=== PATIENT | male | born 2000 | race Two or more races ===

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

== ENCOUNTER 2022-04-27 15:40 | Emergency (ER) | payer MEDICAID ==
[2022-04-27] MEDS ORDERED: Ketorolac Tromethamine 30 MG/ML VIAL ONE (18:30)
== END 2022-04-27 19:50 | disposition home or self-care (01) ==
LOC: ERS 15:40
DX: S62.314A Displaced fracture of base of fourth metacarpal bone, right hand, initial encounter for closed fracture (principal); W20.8XXA Other cause of strike by thrown, projected or falling object, initial encounter
CPT/HCPCS: 29125; 96372; J1885

== ENCOUNTER 2022-05-16 10:35 | Outpatient (CLI) | payer OTHER ==
[2022-05-16 11:42] LABS: Anion Gap 14 mmol/L (10-20); BUN (Urea Nitrogen) 16 mg/dL (8.9-20.6); Calc. Creatinine Clearance 0 mL/min (70-130); Calcium 9.6 mg/dL (7.8-10.44); Carbon Dioxide 27 mmol/L (22-29); Chloride 103 mmol/L (98-107); Estimated GFR 118; Glucose 95 mg/dL (70-105); Potassium 4.2 mmol/L (3.5-5.1); Sodium 140 mmol/L (136-145)
== END 2022-05-16 10:36 | disposition home or self-care (01) ==
LOC: LABBT 10:35
PROVIDERS: ATTEND Surgery Surgery of the Hand
DX: Z01.812 Encounter for preprocedural laboratory examination (principal); S62.314A Displaced fracture of base of fourth metacarpal bone, right hand, initial encounter for closed fracture; S62.316A Displaced fracture of base of fifth metacarpal bone, right hand, initial encounter for closed fracture
CPT/HCPCS: 80048

== ENCOUNTER 2022-05-19 10:22 | Day surgery (SDC) | payer OTHER ==
[2022-05-16 12:23] VITALS: BMI 25.1
[2022-05-19] MEDS ORDERED: Lidocaine 1% (PF) 30 ML VIAL ONE (12:10)
[2022-05-19] MEDS ORDERED: Bupivacaine 0.25% HCL 30 ML VIAL ONE (12:10)
[2022-05-19] MEDS ORDERED: Dexmedetomidine 200 MCG/2 ML VIAL ONE (12:20)
[2022-05-19] MEDS ORDERED: fentaNYL PF 100 MCG/2 ML SYRINGE ONE (12:20)
[2022-05-19] MEDS ORDERED: Sodium Chloride 0.9% 100 ML ONE (12:28)
[2022-05-19] MEDS ORDERED: CEFAZOLIN 2 GM VIAL ONE (12:28)
[2022-05-19] MEDS ORDERED: Midazolam HCl 2 mg/2 ml Vial ONE (12:36)
[2022-05-19] MEDS ORDERED: Dexamethasone 20 MG/5 ML VIAL ONE (12:45)
[2022-05-19] MEDS ORDERED: PROPOFOL 200 MG/20 ML VIAL ONE (12:45)
[2022-05-19] MEDS ORDERED: Ondansetron PF 4 MG/2 ML Vial ONE (12:45)
[2022-05-19] MEDS ORDERED: Lidocaine 1% PF 5 ML VIAL ONE (12:45)
[2022-05-19] MEDS ORDERED: Ketorolac Tromethamine 30 MG/ML VIAL ONE (12:45)
[2022-05-19] MEDS ORDERED: ePHEDrine 50 MG/ML VIAL ONE (12:45)
[2022-05-19] MEDS ORDERED: HYDROmorphone 2 MG/ML VIAL ONE (13:13)
== END 2022-05-19 16:33 | disposition home or self-care (01) ==
LOC: SDC 10:22
PROVIDERS: ATTEND Surgery Surgery of the Hand
PROC: 0PSM04Z Reposition Right Carpal with Internal Fixation Device, Open Approach (ICD-10-PCS; principal; 2022-05-19)
DX: S62.314A Displaced fracture of base of fourth metacarpal bone, right hand, initial encounter for closed fracture (principal); S62.316A Displaced fracture of base of fifth metacarpal bone, right hand, initial encounter for closed fracture; Z88.1 Allergy status to other antibiotic agents; W22.8XXA Striking against or struck by other objects, initial encounter
CPT/HCPCS: C1713; J1100; J1170; J1885; J2001; J2250; J2405; J2704; J3490; S0020

== ENCOUNTER 2023-01-15 13:18 | Outpatient (CLI) | payer OTHER ==
[2023-01-15 14:45] LABS: Anion Gap 11 mmol/L (10-20); BUN (Urea Nitrogen) 13 mg/dL (8.9-20.6); Calc. Creatinine Clearance 0 mL/min (70-130); Carbon Dioxide 26 mmol/L (22-29); Chloride 104 mmol/L (98-107); Estimated GFR 127; Glucose 86 mg/dL (70-105); Potassium 4.2 mmol/L (3.5-5.1); Sodium 137 mmol/L (136-145)
== END 2023-01-15 13:19 | disposition home or self-care (01) ==
LOC: LABBT 13:18
PROVIDERS: ATTEND Surgery Surgery of the Hand
DX: Z01.818 Encounter for other preprocedural examination (principal); S62.316A Displaced fracture of base of fifth metacarpal bone, right hand, initial encounter for closed fracture
CPT/HCPCS: 80048; 93005; 93010

== ENCOUNTER 2023-01-21 10:14 | Day surgery (SDC) | payer OTHER ==
[2023-01-15 14:03] VITALS: BMI 28.3
[2023-01-21] MEDS ORDERED: EPINEPHrine 1 MG/ML VIAL ONE (12:04)
[2023-01-21] MEDS ORDERED: Midazolam HCl 2 mg/2 ml Vial ONE (12:04)
[2023-01-21] MEDS ORDERED: Bupivacaine PF 0.5% 30 ML VIAL ONE (12:04)
[2023-01-21] MEDS ORDERED: CEFAZOLIN 2 GM VIAL ONE (12:10)
[2023-01-21] MEDS ORDERED: Sodium Chloride 0.9% 100 ML ONE (12:10)
[2023-01-21] MEDS ORDERED: Lidocaine 1% (PF) 30 ML VIAL ONE (12:21)
[2023-01-21] MEDS ORDERED: fentaNYL PF 100 MCG/2 ML SYRINGE ONE (12:40)
== END 2023-01-21 14:32 | disposition home or self-care (01) ==
LOC: SDC 10:14
PROVIDERS: ATTEND Surgery Surgery of the Hand
PROC: 0XP60YZ Removal of Other Device from Right Upper Extremity, Open Approach (ICD-10-PCS; principal; 2023-01-21)
DX: T84.89XA Other specified complication of internal orthopedic prosthetic devices, implants and grafts, initial encounter (principal); S62.316D Displaced fracture of base of fifth metacarpal bone, right hand, subsequent encounter for fracture with routine healing; Y79.2 Prosthetic and other implants, materials and accessory orthopedic devices associated with adverse incidents
CPT/HCPCS: J0171; J2001; J2250; J3490; S0020

== ENCOUNTER 2023-02-23 12:08 | Emergency (ER) | payer OTHER, SELFPAY | END 2023-02-23 13:24 | disposition home or self-care (01) | LOC: ERS 12:08 | DX: T40.711A Poisoning by cannabis, accidental (unintentional), initial encounter (principal); F17.290 Nicotine dependence, other tobacco product, uncomplicated | CPT/HCPCS: 99283 ==